=== PATIENT | female | born 1965 | race Caucasian/White ===

== ENCOUNTER → 2016-09-23 | Outpatient (REF) | payer OTHER ==
[2016-09-27 00:06] LABS: Lyme Disease IgG/IgM Antibodie <0.91 ISR (0.00-0.90); Lyme Disease IgM Ab Quantitati <0.80 index (0.00-0.79)
== END ==
LOC: M LAB REF 16:31
PROVIDERS: ATTEND Internal Medicine
DX: M79.1 Myalgia (principal)

== ENCOUNTER → 2017-01-01 | Outpatient (REF) | payer OTHER | LOC: M SMT 16:56 → M SFHCWAGY 16:56 | PROVIDERS: ATTEND Nurse Practitioner Women's Health | DX: Z11.3 Encounter for screening for infections with a predominantly sexual mode of transmission (principal) ==

== ENCOUNTER → 2017-01-08 | Outpatient (CLI) | payer OTHER ==
--- NOTE | 2017-01-08 16:55 | REPMRS ---
Patient History The patient states she had a clinical breast exam in 01/2017. Patient is postmenopausal and had first child at age 29. Family history of breast cancer in sister at age 53. Took hormonal contraceptives for 27 years 6 months. Digital Woman Screen Mammo: January 08, 2017 - Exam #: [id number] Bilateral CC and MLO view(s) were taken. Technologist: Teresa Vera, Technologist Prior study comparison: January 08, 2016, digital woman screen mammo performed at [facility]. December 29, 2014, digital woman screen mammo performed at [facility]. FINDINGS: There are scattered fibroglandular densities. There has been no change in the appearance of the mammogram from the prior studies. There is a mild amount of residual fibroglandular tissue which is fairly symmetric. There is no interval development of dominant mass, architectural distortion, or clustered microcalcification suggestive of malignancy. ASSESSMENT: BI-RADS/ACR category 1 mammogram. Negative. Recommendation Routine screening mammogram in 1 year (for women over age 40). This mammogram was interpreted with the aid of an FDA-approved computer-aided dectection system. Electronically Signed By: Shahzad Becker MD 01/08/17 0838
== END ==
LOC: M WHC 15:26
PROVIDERS: ATTEND Nurse Practitioner Women's Health
DX: Z12.31 Encounter for screening mammogram for malignant neoplasm of breast (principal)

== ENCOUNTER → 2017-01-08 | Outpatient (REF) | payer OTHER | LOC: M SFHCWAGY 15:59 | PROVIDERS: ATTEND Nurse Practitioner Women's Health | DX: Z12.4 Encounter for screening for malignant neoplasm of cervix (principal); Z12.39 Encounter for other screening for malignant neoplasm of breast ==

== ENCOUNTER → 2017-04-28 | Outpatient (REF) | payer OTHER ==
[2017-04-28 18:55] LABS: VITAMIN B12 LEVEL 682 PG/ML (247-911)
[2017-05-01 00:06] LABS: Lyme Disease IgG/IgM Antibodie <0.91 ISR (0.00-0.90); Lyme Disease IgM Ab Quantitati <0.80 index (0.00-0.79)
== END ==
LOC: M LAB REF 14:22
PROVIDERS: ATTEND Nurse Practitioner Adult Health
DX: M79.606 Pain in leg, unspecified (principal)

== ENCOUNTER → 2017-07-01 | Outpatient (REF) | payer OTHER | LOC: M SFHCWAGY 17:12 | PROVIDERS: ATTEND Nurse Practitioner Family | DX: Z11.3 Encounter for screening for infections with a predominantly sexual mode of transmission (principal) ==

== ENCOUNTER → 2017-09-21 | Outpatient (REF) | payer OTHER ==
[2017-09-21 16:38] LABS: MYOGLOBIN 50 NG/ML (13-71)
[2017-09-24 00:06] LABS: Lyme Disease IgG/IgM Antibodie <0.91 ISR (0.00-0.90); Lyme Disease IgM Ab Quantitati <0.80 index (0.00-0.79)
== END ==
LOC: M LAB REF 16:01
DX: M62.81 Muscle weakness (generalized) (principal); M70.61 Trochanteric bursitis, right hip

== ENCOUNTER → 2017-09-30 | Outpatient (CLI) | payer OTHER | LOC: M WUC 15:49 | DX: R05 Cough (principal); R91.8 Other nonspecific abnormal finding of lung field | CPT/HCPCS: 71046 ==

== ENCOUNTER → 2017-10-24 | Outpatient (CLI) | payer OTHER | LOC: M WUC 12:58 | DX: R91.8 Other nonspecific abnormal finding of lung field (principal) ==

== ENCOUNTER → 2018-03-19 | Outpatient (CLI) | payer OTHER | LOC: M WHC 13:45 | DX: Z12.31 Encounter for screening mammogram for malignant neoplasm of breast (principal) | CPT/HCPCS: 77067 ==

== ENCOUNTER → 2018-03-19 | Outpatient (REF) | payer OTHER | LOC: M SFHCWAGY 14:30 | DX: Z12.4 Encounter for screening for malignant neoplasm of cervix (principal) ==

== ENCOUNTER → 2018-06-30 | Outpatient (CLI) | payer OTHER | LOC: M WUC 14:15 | DX: R05 Cough (principal) | CPT/HCPCS: 71046 ==

== ENCOUNTER → 2019-03-21 | Outpatient (REF) | payer OTHER | LOC: M LAB REF 13:24 | PROVIDERS: ATTEND Nurse Practitioner Women's Health | DX: Z12.4 Encounter for screening for malignant neoplasm of cervix (principal) ==

== ENCOUNTER → 2019-03-21 | Outpatient (REF) | payer OTHER | LOC: M SFHCWAGY 09:16 | PROVIDERS: ATTEND Nurse Practitioner Women's Health | DX: Z12.4 Encounter for screening for malignant neoplasm of cervix (principal) ==

== ENCOUNTER → 2019-03-21 | Outpatient (CLI) | payer OTHER ==
--- NOTE | 2019-03-21 10:50 | REP ---
BILATERAL MAMMOGRAM WITH 3D TOMOSYNTHESIS: Family history of breast cancer in sister at age 53. [facility] lifetime risk of breast cancer 19.6%. Comparison 03/19/2018 as well as multiple other prior exams. MLO and CC views of both breasts are performed with 3D tomosynthesis. There is mild to moderate scattered fibroglandular tissue bilaterally. I suspect a 6 mm nodule in the inferolateral right breast posteriorly. No other mass or architectural distortion is seen. No clustered microcalcifications are seen. There are coarse benign type calcifications bilaterally. IMPRESSION: BIRADS 0: BI-RADS/ACR category 0 mammogram, Incomplete: Need additional imaging evaluation and/or prior mammograms for comparison. Suspect 6 mm nodule right breast posterior third inferolaterally. Recommend spot compression views and ultrasound to further evaluate. This mammogram was interpreted with the aid of an FDA-approved computer-aided detection system. The patient states he/she had a clinical breast exam in 03/2019. The patient letter being requested is M0.
== END ==
LOC: M WHC 09:01
PROVIDERS: ATTEND Nurse Practitioner Women's Health
DX: Z12.31 Encounter for screening mammogram for malignant neoplasm of breast (principal); N63.10 Unspecified lump in the right breast, unspecified quadrant

== ENCOUNTER → 2019-03-24 | Outpatient (CLI) | payer OTHER ==
--- NOTE | 2019-03-24 15:06 | REP ---
DIAGNOSTIC MAMMOGRAM RIGHT BREAST WITH RIGHT BREAST ULTRASOUND: Multiple spot compression views and tomosynthesis views of the right breast are performed to evaluate a possible nodule inferolaterally in the right breast, far posteriorly. This was best seen on the right CC view obtained during screening mammography 03/21/2019. The nodular density in the right breast inferolaterally does not persist on the multiple compression and tomographic views. It appears to compress to an unchanged appearance compared to other prior studies. Real-time sonographic evaluation of the right lateral breast performed concentrating inferiorly and posteriorly. There are scattered dilated ducts in the later aspect of the breast including in the retroareolar region. There is a 4 mm cyst at the 9 -o'clock position approximately 6-7 cm from the nipple. No solid nodule is seen. IMPRESSION: BIRADS 2: BI-RADS/ACR category 2 mammogram. Benign Findings. ACR 2. No persistent nodule on multiple spot compression and tomographic images in the lateral inferior right breast posteriorly. By ultrasound, there are scattered dilated ducts in the lateral aspect of the right breast and there is a 4 mm benign cyst at the 9 -o'clock position. No suspicious solid nodule is seen sonographically. Recommend followup mammogram in 1 year. Patient letter being requested M1. Electronically Signed by Shahzad Becker MD 03/27/2019 07:17 P
== END ==
LOC: M RAD 12:08
PROVIDERS: ATTEND Nurse Practitioner Women's Health
DX: N63.10 Unspecified lump in the right breast, unspecified quadrant (principal)

== ENCOUNTER → 2019-06-20 | Outpatient (CLI) | payer OTHER ==
[2019-06-20 16:45] LABS: PERCENT SATURATION 28.9 % (13.2-45.0)
[2019-06-20 16:58] LABS: FOLATE 16.9 NG/ML
--- NOTE | 2019-06-21 05:42 | REP ---
Clinical: Pain and swelling. Technique: Three views of the right sternoclavicular joint. Findings: The right sternoclavicular joint appears intact and normal. There is evidence for old healed mid clavicular shaft fracture. Impression: Normal radiographic appearance to the sternoclavicular joint. Old right clavicle fracture. Electronically Signed by Daniel Hardy MD 06/21/2019 05:33 A
== END ==
LOC: M WUC 15:36
PROVIDERS: ATTEND Internal Medicine
DX: D64.9 Anemia, unspecified (principal); R07.89 Other chest pain

== ENCOUNTER → 2020-01-18 | Outpatient (CLI) | payer OTHER | LOC: M LABSMTC 11:33 | PROVIDERS: ATTEND Family Medicine | DX: Z11.59 Encounter for screening for other viral diseases (principal); Z20.828 Contact with and (suspected) exposure to other viral communicable diseases | CPT/HCPCS: C9803; U0003 ==

== ENCOUNTER → 2020-02-03 | Outpatient (CLI) | payer OTHER ==
--- NOTE | 2020-02-03 12:28 | REP ---
REASON: Cough. History of bronchitis. COMPARISON: 06/30/2018 FINDINGS: The superior mediastinal structures are midline. The cardiac silhouette is unremarkable in size, shape, and position. The diaphragmatic surfaces of the lungs are regular, and the costophrenic angles are clear. The pulmonary francois are clear. The imaged osseous structures are intact. IMPRESSION: There is no acute cardiopulmonary disease. No significant change from the prior exam. Electronically Signed by Kenny Tyson DO 02/03/2020 01:03 P
== END ==
LOC: M WUC 11:07
PROVIDERS: ATTEND Physician Assistant
DX: Z20.828 Contact with and (suspected) exposure to other viral communicable diseases (principal); J20.9 Acute bronchitis, unspecified; R05 Cough
CPT/HCPCS: 71046; U0003

== ENCOUNTER → 2020-03-22 | Outpatient (CLI) | payer OTHER ==
--- NOTE | 2020-03-22 11:11 | REPMRS ---
Patient History The patient states she had a clinical breast exam in March 2020.Family history of breast cancer at age 53 in sister. Took hormonal contraceptives for 27 years 6 months. 3D TOMOSYNTHESIS WAS PERFORMED. The Maryann [facility]ip[facility] lifetime risk for breast cancer is 19.1%. VOLPARA DENSITY B. Digital Woman Screen Mammo: March 22, 2020 - Exam #: [id number] Bilateral CC and MLO view(s) were taken. Technologist: Jeni Fernando, Technologist Prior study comparison: March 24, 2019, right breast digital mammo diagnostic unilateral, performed at [facility]. March 21, 2019, bilateral digital woman screen mammo performed at [facility]. FINDINGS: The breast tissue is heterogeneously dense. This may lower the sensitivity of mammography. There has been no change in the appearance of the mammogram from the prior studies. There is a moderate amount of residual fibroglandular tissue which is fairly symmetric. There is no interval development of dominant mass, areas of architectural distortion, or clustered microcalcification typical of malignancy. Assessment: BI-RADS/ACR category 1 mammogram. Negative Mammogram. Recommendation Routine screening mammogram in 1 year (for women over age 40). This mammogram was interpreted with the aid of an FDA-approved computer-aided dectection system. Electronically Signed By: Shahzad Becker MD 03/22/20 1100
== END ==
LOC: M WHC 09:03
PROVIDERS: ATTEND Nurse Practitioner Women's Health
DX: Z12.31 Encounter for screening mammogram for malignant neoplasm of breast (principal); Z80.3 Family history of malignant neoplasm of breast; Z92.0 Personal history of contraception

== ENCOUNTER → 2020-07-04 | Outpatient (REF) | payer OTHER ==
[2020-07-06 17:15] LABS: ANTINUCLEAR ANTIBODIES DIRECT Negative (Negative); Lyme Disease IgG/IgM Antibodie <0.91 ISR (0.00-0.90); Lyme Disease IgM Ab Quantitati <0.80 index (0.00-0.79)
== END ==
LOC: M LAB REF 17:14
PROVIDERS: ATTEND Internal Medicine
DX: M79.604 Pain in right leg (principal)

== ENCOUNTER → 2020-08-14 | Outpatient (CLI) | payer SELFPAY | LOC: M LABSMTC 10:57 | PROVIDERS: ATTEND Pediatrics | DX: Z11.59 Encounter for screening for other viral diseases (principal) ==

== ENCOUNTER → 2020-09-11 | Outpatient (CLI) | payer OTHER ==
--- NOTE | 2020-09-11 16:41 | REP ---
INDICATION: BRONCHITIS. COMPARISON: Comparison chest x-ray February 03, 2020. TECHNIQUE: Two views.. FINDINGS: The lungs are well inflated and free of infiltrate. The pleural angles are sharp. The heart size is normal. Pulmonary vasculature is not increased. No significant bony abnormality is seen. There is a gentle S-shaped thoracic scoliotic curve unchanged. IMPRESSION: No active disease.. <Electronically signed by Sam Francis > 09/11/20 [id number]
== END ==
LOC: M WUC 16:16
PROVIDERS: ATTEND Physician Assistant
DX: J20.9 Acute bronchitis, unspecified (principal)

== ENCOUNTER → 2020-09-15 | Outpatient (CLI) | payer SELFPAY | LOC: M LABSMTC 09:14 | PROVIDERS: ATTEND Pediatrics | DX: Z20.822 Contact with and (suspected) exposure to COVID-19 (principal) ==

== ENCOUNTER → 2020-10-22 | Outpatient (REF) | payer OTHER ==
[2020-10-22 17:50] LABS: COMPLEMENT C3 102 MG/DL (90-180); COMPLEMENT C4 16 MG/DL (10-40); CPK CREATINE PHOSPHOKINASE 78 U/L (26-192); IRON (FE) 99 UG/DL (50-170); MAGNESIUM LEVEL 2.1 MG/DL (1.8-2.4); PHOSPHORUS LEVEL 4.3 MG/DL (2.5-4.9); TOTAL PROTEIN 7.2 GM/DL (6.4-8.2)
[2020-10-22 17:52] LABS: BASO % 0.7 % (0.0-1.0); HEMATOCRIT 38.8 % (36.0-47.0); HEMOGLOBIN 12.5 g/dl (12.0-15.5); LYMPH % 35.6 % (24.0-44.0); MEAN CORPUSCULAR HEMOGLOBIN 29.6 pg (27.0-33.0); MEAN CORPUSCULAR HGB CONC 32.2 g/dl (32.0-36.5); MEAN CORPUSCULAR VOLUME 91.9 fl (80.0-96.0); MONO # 0.4 10^3/uL (0.0-0.8); MONO % 7.7 % (0.0-8.0); NEUTROPHILS # 3.1 10^3/uL (1.5-8.5); NEUTROPHILS % 55.8 % (36.0-66.0); PLATELET COUNT, AUTOMATED 289 10^3/uL (150-450); RED BLOOD COUNT 4.22 10^6/uL (4.00-5.40); WHITE BLOOD COUNT 5.6 10^3/uL (4.0-10.0)
[2020-10-22 17:58] LABS: TOTAL 25(OH) VITAMIN D 27.9 NG/ML (30.0-100.0); VITAMIN B12 LEVEL 909 PG/ML (247-911)
[2020-10-23 12:52] LABS: ALBUMIN % 61.1 % (55.8-66.1); ALPHA-1-GLOBULIN % 3.8 % (2.9-4.9); ALPHA-2-GLOBULINS % 7.9 % (7.1-11.8)
[2020-10-23 12:53] LABS: ALPHA-1-GLOBULINS 0.27 GM/DL (0.17-0.41); ALPHA-2-GLOBULINS 0.57 GM/DL (0.42-0.99); BETA-1-GLOBULINS % 5.5 % (4.7-7.2); BETA-2-GLOBULINS 0.33 GM/DL (0.19-0.55); BETA-2-GLOBULINS % 4.6 % (3.2-6.5); GAMMA GLOBULIN % 17.1 % (11.1-18.8); GAMMA GLOBULINS 1.23 GM/DL (0.65-1.58)
== END ==
LOC: M SFHCRHEU 10:17
PROVIDERS: ATTEND Internal Medicine
DX: M79.10 Myalgia, unspecified site (principal); D72.819 Decreased white blood cell count, unspecified; H04.129 Dry eye syndrome of unspecified lacrimal gland

== ENCOUNTER → 2020-12-10 | Outpatient (CLI) | payer OTHER ==
--- NOTE | 2020-12-11 15:22 | SLEEPHOME ---
DATE: 12/10/2020 ORDERED BY: Dr. Velia Murry [facility] Diagnostic home sleep testing was performed due to concern for the obstructive sleep apnea syndrome in this patient with a history of fatigue. For testing, a nocturnal T3 respiratory monitoring device was used. Continuous record was made of pulse, oxygen saturation, air flow, chest and abdominal strain, and body position. There was 11 hours and 59 minutes of data reviewed. There was 7 hours and 14 hours marked as time in bed. During the interval marked time in bed there were 58 respiratory events identified of 10 seconds in duration or greater for a respiratory event index of 8. The events were primarily obstructive. Ten mixed and central apneas were noted. Baseline pulse rate 55. Pulse rate ranged between 36-108. Baseline saturation was 95%. Saturations fell to 79%, and testing was performed in both the supine and nonsupine positions. IMPRESSION: Abnormal home sleep testing with repetitive respiratory events and oxygen desaturations to 79% with a respiratory event index of 8 is consistent with the obstructive sleep apnea syndrome. RECOMMENDATION: The patient should be encouraged to undergo formal sleep evaluation.
== END ==
LOC: M SLEEP HO 09:03
PROVIDERS: ATTEND Internal Medicine
DX: R53.83 Other fatigue (principal)

== ENCOUNTER → 2020-12-14 | Outpatient (CLI) | payer OTHER ==
--- NOTE | 2020-12-14 13:23 | DEXAMM ---
INDICATION: Z78.0 ASYMPTOMATIC MENOPAUSAL STATE. COMPARISON: None. TECHNIQUE: Bone density was measured using dual-energy x-ray absorptiometry (DEXA). FINDINGS: AP SPINE L1-L4 BMD 1.097 g/cm2 Young Adult T-Score -0.8 Age Matched Z-Score 0.2. LT FEMUR, TOTAL BMD 0.952 g/cm2 Young Adult T-Score -0.4 Age Matched Z-Score 0.3. LT NECK BMD 0.868 g/cm2 Young Adult T-Score -1.2 Age Matched Z-Score -0.1. RT FEMUR, TOTAL BMD 0.895 g/cm2 Young Adult T-Score -0.9 Age Matched Z-Score -0.1. RT NECK BMD 0.836 g/cm2 Young Adult T-Score -1.5 Age Matched Z-Score -0.4. IMPRESSION: There is normal bone density of the spine. There is low bone density of the left hip. There is low bone density of the right hip. FOLLOW-UP: Recommendation for the next bone density exam: 2 years. <Electronically signed by Shahzad Becker > 12/14/20 0316
== END ==
LOC: M WHC 09:34
PROVIDERS: ATTEND Internal Medicine
DX: Z78.0 Asymptomatic menopausal state (principal); M85.89 Other specified disorders of bone density and structure, multiple sites

== ENCOUNTER → 2021-03-26 | Outpatient (REF) | payer OTHER | LOC: M SFHCWAGY 13:12 | PROVIDERS: ATTEND Nurse Practitioner Women's Health | DX: Z12.4 Encounter for screening for malignant neoplasm of cervix (principal) ==

== ENCOUNTER → 2021-03-26 | Outpatient (CLI) | payer OTHER ==
--- NOTE | 2021-03-26 10:22 | REPMRS ---
Patient History The patient states she had a clinical breast exam in March 2021. Family history of breast cancer at age 53 in sister. Took hormonal contraceptives for 27 years 6 months. Patient states no breast complaints today. Patient has signed MRS History Sheet. Digital Woman Screen Mammo: March 26, 2021 - Exam #: [id number] Bilateral CC and MLO view(s) were taken. Technologist: Yamilet Iglesias, Technologist Prior study comparison: March 22, 2020, bilateral digital woman screen mammo performed at [facility]. March 24, 2019, right breast digital mammo diagnostic unilateral, performed at [facility]. March 21, 2019, bilateral digital woman screen mammo performed at [facility]. FINDINGS: There are scattered fibroglandular densities. The Volpara volumetric breast density category is:B. There has been no change in the appearance of the mammogram from the prior studies. There is a mild amount of scattered fibroglandular density which is fairly symmetric. There is no interval development of dominant mass, architectural distortion, or grouped microcalcification suggestive of malignancy. 3-D tomosynthesis shows no additional findings. Assessment: BI-RADS/ACR category 1 mammogram. Negative Mammogram. Recommendation Routine screening mammogram of both breasts in 1 year (for women over age 40). This patient's [facility] Lifetime Breast Cancer Risk is estimated at 18.6 %. This mammogram was interpreted with the aid of an FDA-approved computer-aided dectection system. Electronically Signed By: Sam Francis MD 03/26/21 1758
== END ==
LOC: M WHC 09:20
PROVIDERS: ATTEND Nurse Practitioner Women's Health
DX: Z12.31 Encounter for screening mammogram for malignant neoplasm of breast (principal); Z80.3 Family history of malignant neoplasm of breast

== ENCOUNTER → 2021-06-20 | Outpatient (REF) | payer OTHER | LOC: M SFHCWAGY 16:49 | PROVIDERS: ATTEND Nurse Practitioner Women's Health | DX: R30.0 Dysuria (principal) ==

== ENCOUNTER → 2021-07-19 | Outpatient (REF) | payer OTHER ==
[2021-07-19 21:02] LABS: APPEARANCE, URINE HAZY (CLEAR); BACTERIA, URINE AUTO 1+ (NEGATIVE); BILIRUBIN, URINE AUTO NEGATIVE (NEGATIVE); BLOOD, URINE BLOOD NEGATIVE (NEGATIVE); COLOR, URINE YELLOW (YELLOW); GLUCOSE, URINE (UA) AUTO NEGATIVE (NEGATIVE); KETONE, URINE AUTO NEGATIVE (NEGATIVE); LEUKOCYTE ESTERASE, URINE AUTO 2+ (NEGATIVE); MUCUS, URINE SMALL (NEGATIVE); NITRITE, URINE AUTO POSITIVE (NEGATIVE); PROTEIN, URINE AUTO NEGATIVE (NEGATIVE); RBC, URINE AUTO 1 /HPF (0-3); SPECIFIC GRAVITY URINE AUTO 1.012 (1.002-1.035); SQUAMOUS EPITHELIAL CELL UR AU 4 /HPF (0-6); UROBILINOGEN, URINE AUTO 0.2 mg/dL (0.0-2.0); WBC, URINE AUTO 23 /HPF (0-3)
== END ==
LOC: M LAB REF 20:47
PROVIDERS: ATTEND Physician Assistant
DX: R30.0 Dysuria (principal)

== ENCOUNTER → 2021-08-26 | Outpatient (CLI) | payer OTHER ==
[~2021-08-26] MED LIST: METHACHOLINE KIT (J7674) INH ONE
--- NOTE | 2021-08-26 16:08 | PFTRPT ---
Height: 67.00 Inches Weight: 138.00 Lbs BSA: 1.73 Diagnosis: R05.9 DATE: 08/26/2021 ORDERED BY: MIKA HAILE M.D. QUALITY: Study of excellent technical quality. PROCEDURE: Under protocol, methacholine was administered. At a dose of 10 mg or 63.875 CDUs, a 20% decline in the FEV1 was noted. PC of 8.03 is on the borderline of positive but flow rates did return to baseline post bronchodilator administration. IMPRESSION: Probably positive methacholine challenge. Please correlate clinically. MTDD
== END ==
LOC: M CARPUL 07-08 15:11
PROVIDERS: ATTEND Internal Medicine
DX: R05.9 Cough, unspecified (principal)
CPT/HCPCS: 94070; J7674

== ENCOUNTER → 2021-11-21 | Outpatient (REF) | payer OTHER ==
[2021-11-22 15:13] LABS: APPEARANCE, URINE HAZY (CLEAR); BACTERIA, URINE AUTO NEGATIVE (NEGATIVE); BILIRUBIN, URINE AUTO NEGATIVE (NEGATIVE); BLOOD, URINE BLOOD NEGATIVE (NEGATIVE); CALCIUM OXALATE CRYSTALS SMALL; COLOR, URINE YELLOW (YELLOW); GLUCOSE, URINE (UA) AUTO NEGATIVE (NEGATIVE); KETONE, URINE AUTO NEGATIVE (NEGATIVE); LEUKOCYTE ESTERASE, URINE AUTO NEGATIVE (NEGATIVE); NITRITE, URINE AUTO NEGATIVE (NEGATIVE); PROTEIN, URINE AUTO NEGATIVE (NEGATIVE); RBC, URINE AUTO 0 /HPF (0-3); SPECIFIC GRAVITY URINE AUTO 1.015 (1.002-1.035); SQUAMOUS EPITHELIAL CELL UR AU 1 /HPF (0-6); UROBILINOGEN, URINE AUTO 0.2 mg/dL (0.0-2.0); WBC, URINE AUTO 0 /HPF (0-3)
== END ==
LOC: M LAB REF 14:45
PROVIDERS: ATTEND Physician Assistant
DX: N39.0 Urinary tract infection, site not specified (principal)

== ENCOUNTER → 2022-02-25 | Outpatient (REF) | payer OTHER | LOC: M LAB REF 16:38 | PROVIDERS: ATTEND Internal Medicine | DX: M54.50 Low back pain, unspecified (principal) ==

== ENCOUNTER → 2022-03-26 | Outpatient (REF) | payer OTHER | LOC: M PLALAB 16:10 | PROVIDERS: ATTEND Advanced Practice Midwife | DX: Z53.9 Procedure and treatment not carried out, unspecified reason (principal) ==

== ENCOUNTER → 2022-04-01 | Outpatient (REF) | payer OTHER | LOC: M SFHCWAGY 13:04 | PROVIDERS: ATTEND Advanced Practice Midwife | DX: Z12.4 Encounter for screening for malignant neoplasm of cervix (principal) | CPT/HCPCS: 87624; G0123 ==

== ENCOUNTER → 2022-04-01 | Outpatient (CLI) | payer OTHER | LOC: M WHC 09:19 | PROVIDERS: ATTEND Advanced Practice Midwife | DX: Z53.9 Procedure and treatment not carried out, unspecified reason (principal) ==

== ENCOUNTER → 2022-05-29 | Outpatient (CLI) | payer OTHER | LOC: M WHC 12:45 | PROVIDERS: ATTEND Advanced Practice Midwife | DX: Z12.31 Encounter for screening mammogram for malignant neoplasm of breast (principal) ==

== ENCOUNTER → 2022-10-31 | Outpatient (CLI) | payer OTHER ==
[2022-10-31 17:15] LABS: BASO % 0.6 % (0.0-1.0); HEMATOCRIT 39.5 % (36.0-47.0); HEMOGLOBIN 12.7 g/dl (12.0-15.5); LYMPH # 2.1 10^3/uL (1.5-5.0); LYMPH % 41.5 % (24.0-44.0); MEAN CORPUSCULAR HEMOGLOBIN 30.5 pg (27.0-33.0); MEAN CORPUSCULAR HGB CONC 32.2 g/dl (32.0-36.5); MEAN CORPUSCULAR VOLUME 94.7 fl (80.0-96.0); MONO # 0.4 10^3/uL (0.0-0.8); MONO % 8.3 % (2.0-8.0); NEUTROPHILS # 2.5 10^3/uL (1.5-8.5); PLATELET COUNT, AUTOMATED 248 10^3/uL (150-450); RED BLOOD COUNT 4.17 10^6/uL (4.00-5.40); WHITE BLOOD COUNT 5.1 10^3/uL (4.0-10.0)
[2022-10-31 17:24] LABS: ERYTHROCYTE SEDIMENTATION RATE 7 mm/hr (0-30)
[2022-10-31 17:31] LABS: C REACTIVE PROTEIN QUANTITATIV < 0.40 MG/DL (<1.0)
[2022-10-31 17:32] LABS: RHEUMATOID FACTOR QUANT < 3.5 IU/ML (<14)
[2022-11-03 14:08] LABS: ANTINUCLEAR ANTIBODIES DIRECT Negative (Negative)
== END ==
LOC: M PLALAB 14:00
PROVIDERS: ATTEND Orthopaedic Surgery
DX: M70.61 Trochanteric bursitis, right hip (principal); M48.061 Spinal stenosis, lumbar region without neurogenic claudication; M54.50 Low back pain, unspecified

== ENCOUNTER → 2022-11-19 | Outpatient (REF) | payer OTHER ==
[2022-11-19 17:23] LABS: APPEARANCE, URINE CLOUDY (CLEAR); BACTERIA, URINE AUTO 2+ (NEGATIVE); BILIRUBIN, URINE AUTO NEGATIVE (NEGATIVE); BLOOD, URINE BLOOD NEGATIVE (NEGATIVE); COLOR, URINE YELLOW (YELLOW); GLUCOSE, URINE (UA) AUTO NEGATIVE (NEGATIVE); KETONE, URINE AUTO NEGATIVE (NEGATIVE); LEUKOCYTE ESTERASE, URINE AUTO 3+ (NEGATIVE); NITRITE, URINE AUTO POSITIVE (NEGATIVE); PROTEIN, URINE AUTO NEGATIVE (NEGATIVE); RBC, URINE AUTO 5 /HPF (0-3); SPECIFIC GRAVITY URINE AUTO 1.016 (1.002-1.035); SQUAMOUS EPITHELIAL CELL UR AU 4 /HPF (0-6); UROBILINOGEN, URINE AUTO 0.2 mg/dL (0.0-2.0); WBC, URINE AUTO 45 /HPF (0-3)
== END ==
LOC: M LAB REF 16:57
PROVIDERS: ATTEND Physician Assistant
DX: N39.0 Urinary tract infection, site not specified (principal)

== ENCOUNTER → 2022-12-08 | Outpatient (REF) | payer OTHER | LOC: M LAB REF 18:14 | PROVIDERS: ATTEND Nurse Practitioner Family | DX: R39.15 Urgency of urination (principal) ==

== ENCOUNTER 2022-12-25 11:35 | Day surgery (SDC) | payer OTHER ==
[~2022-12-25] VITALS: Ht 170.2 cm; Wt 62.8 kg
[~2022-12-25 11:35] MED LIST changes: -METHACHOLINE KIT (J7674) INH ONE; +NS 1,000 ML IV ONE
[2022-12-25] MEDS ORDERED: LIDOCAINE 2% 100MG/5ML SDV (FOR ANES.) As Ordered ONE ×2 (13:27→13:33)
[2022-12-25] MEDS ORDERED: propofoL 200 MG/20 ML VIAL As Ordered ONE ×2 (13:27→13:33)
[2022-12-25 14:04] VITALS: BP 108/59
== END 2022-12-25 14:06 | disposition home or self-care (01) ==
LOC: M OPP 11:35
PROVIDERS: ATTEND Surgery
DX: Z12.11 Encounter for screening for malignant neoplasm of colon (principal); K57.30 Diverticulosis of large intestine without perforation or abscess without bleeding; Z88.2 Allergy status to sulfonamides; Z91.013 Allergy to seafood; Z91.018 Allergy to other foods

== ENCOUNTER → 2023-01-02 | Outpatient (CLI) | payer OTHER ==
[2023-01-02 17:22] LABS: BASO % 0.8 % (0.0-1.0); EOS # 0.1 10^3/uL (0.0-0.5); HEMATOCRIT 37.3 % (36.0-47.0); HEMOGLOBIN 12.3 g/dl (12.0-15.5); LYMPH # 2.3 10^3/uL (1.5-5.0); LYMPH % 47.5 % (24.0-44.0); MEAN CORPUSCULAR HEMOGLOBIN 30.5 pg (27.0-33.0); MEAN CORPUSCULAR VOLUME 92.6 fl (80.0-96.0); MONO # 0.4 10^3/uL (0.0-0.8); MONO % 7.5 % (2.0-8.0); NEUTROPHILS # 2.1 10^3/uL (1.5-8.5); PLATELET COUNT, AUTOMATED 253 10^3/uL (150-450); RED BLOOD COUNT 4.03 10^6/uL (4.00-5.40); WHITE BLOOD COUNT 4.9 10^3/uL (4.0-10.0)
[2023-01-02 17:42] LABS: ERYTHROCYTE SEDIMENTATION RATE 5 mm/hr (0-30)
[2023-01-02 17:50] LABS: C REACTIVE PROTEIN QUANTITATIV < 0.40 MG/DL (<1.0)
[2023-01-02 17:51] LABS: RHEUMATOID FACTOR QUANT 3.5 IU/ML (<14)
[2023-01-05 14:08] LABS: ANTINUCLEAR ANTIBODIES DIRECT Negative (Negative)
== END ==
LOC: M PLALAB 15:09
PROVIDERS: ATTEND Orthopaedic Surgery
DX: M54.50 Low back pain, unspecified (principal)

== ENCOUNTER → 2023-02-17 | Outpatient (REF) | payer OTHER ==
[2023-02-17 13:09] LABS: CK-MB VALUE MASS 1.9 NG/ML (<3.6)
[2023-02-17 13:14] LABS: CPK CREATINE PHOSPHOKINASE 87 U/L (34-145); MB/CK RELATIVE INDEX 2.18 (< OR =4)
== END ==
LOC: M LAB REF 12:37
PROVIDERS: ATTEND Nurse Practitioner Family
DX: R07.9 Chest pain, unspecified (principal)

== ENCOUNTER → 2023-04-28 | Outpatient (CLI) | payer OTHER | LOC: M WHC 08:54 | PROVIDERS: ATTEND Nurse Practitioner Family | DX: Z12.31 Encounter for screening mammogram for malignant neoplasm of breast (principal) ==

== ENCOUNTER → 2023-04-28 | Outpatient (REF) | payer OTHER ==
[2023-04-28 16:17] LABS: GC DNA AMPLIFICATION NEGATIVE (NEGATIVE)
== END ==
LOC: M SFHCWAGY 13:42
PROVIDERS: ATTEND Nurse Practitioner Family
DX: Z12.4 Encounter for screening for malignant neoplasm of cervix (principal); Z11.3 Encounter for screening for infections with a predominantly sexual mode of transmission
CPT/HCPCS: 87624; 87661; 87810; 87850; G0123

== ENCOUNTER → 2023-05-18 | Outpatient (CLI) | payer OTHER | LOC: M WUC 15:36 | PROVIDERS: ATTEND Nurse Practitioner Family | DX: R06.00 Dyspnea, unspecified (principal) ==

== ENCOUNTER → 2023-07-02 | Outpatient (CLI) | payer OTHER | LOC: M RAD 14:34 | PROVIDERS: ATTEND Internal Medicine | DX: R10.9 Unspecified abdominal pain (principal) ==

== ENCOUNTER 2023-10-20 16:01 | Emergency (ER) | payer OTHER, SELFPAY ==
[~2023-10-20] VITALS: Ht 170.2 cm; Wt 62.7 kg
[2023-10-20] MEDS ORDERED: FLUO20CA22 (16:08)
[2023-10-20 16:41] LABS: BASO % 0.8 % (0.0-1.0); EOS % 0.4 % (0.0-3.0); HEMATOCRIT 37.5 % (36.0-47.0); HEMOGLOBIN 12.6 g/dl (12.0-15.5); LYMPH % 40.5 % (24.0-44.0); MEAN CORPUSCULAR HEMOGLOBIN 31.5 pg (27.0-33.0); MEAN CORPUSCULAR HGB CONC 33.6 g/dl (32.0-36.5); MEAN CORPUSCULAR VOLUME 93.8 fl (80.0-96.0); MONO # 0.5 10^3/uL (0.0-0.8); MONO % 9.3 % (2.0-8.0); NEUTROPHILS # 2.5 10^3/uL (1.5-8.5); PLATELET COUNT, AUTOMATED 253 10^3/uL (150-450)
[2023-10-20 17:15] LABS: CK-MB VALUE MASS < 1.0 NG/ML (<3.6); LIPASE 68 U/L (12-53)
[2023-10-20 17:17] LABS: ALBUMIN 3.9 G/DL (3.2-5.2); ALKALINE PHOSPHATASE 72 U/L (46-116); ALT/SGPT 47 U/L (7.0-40); AST/SGOT 27 U/L (<34); BILIRUBIN,DIRECT < 0.1 MG/DL (<0.4); BILIRUBIN,TOTAL 0.2 MG/DL (0.3-1.2); BLOOD UREA NITROGEN 20 MG/DL (9-23); CALCIUM LEVEL 9.4 MG/DL (8.5-10.1); CARBON DIOXIDE LEVEL 29 MMOL/L (20-31); CHLORIDE LEVEL 103 MMOL/L (98-107); CREATININE FOR GFR 0.69 MG/DL (0.55-1.30); GLOMERULAR FILTRATION RATE > 60.0 (>51); GLUCOSE, FASTING 98 MG/DL (60-100); POTASSIUM SERUM 4.3 MMOL/L (3.5-5.1); SODIUM LEVEL 136 MMOL/L (136-145); TOTAL PROTEIN 6.7 G/DL (5.7-8.2)
[2023-10-20 17:19] LABS: CPK CREATINE PHOSPHOKINASE 85 U/L (34-145); MB/CK RELATIVE INDEX 1.17 (< OR =4)
[2023-10-20 18:23] VITALS: BP 169/84
[2023-10-20 19:20] LABS: INR 0.92; PROTHROMBIN TIME 12.1 SECONDS (12.5-14.5)
[2023-10-20 20:16] LABS: CK-MB VALUE MASS < 1.0 NG/ML (<3.6)
[2023-10-20 20:22] LABS: CPK CREATINE PHOSPHOKINASE 97 U/L (34-145); MB/CK RELATIVE INDEX 1.03 (< OR =4)
[2023-10-20] MEDS ORDERED: LISI10TA22 PO (20:37)
[2023-10-20] MEDS ORDERED: ASPI81TA26 PO (20:37)
[2023-10-20 20:52] VITALS: TEMP 97.5; O2SAT 99
[2023-10-20 21:00] VITALS: BP 146/83
[2023-10-21] MEDS ORDERED: ASPIRIN 81MG ENTERIC TABLET PO SCH (09:00)
== END 2023-10-20 21:14 | disposition home or self-care (01) ==
LOC: M ED 16:01
DX: R07.9 Chest pain, unspecified (principal); F10.10 Alcohol abuse, uncomplicated; R00.1 Bradycardia, unspecified; I45.10 Unspecified right bundle-branch block; Z88.2 Allergy status to sulfonamides; Z91.018 Allergy to other foods; Z91.013 Allergy to seafood; Z79.899 Other long term (current) drug therapy; Z79.1 Long term (current) use of non-steroidal anti-inflammatories (NSAID)

== ENCOUNTER → 2023-12-22 | Outpatient (CLI) | payer OTHER ==
[~2023-12-22] MED LIST changes: +ASPI81TA26 PO; +FLUO20CA22; +LISI10TA22 PO; -NS 1,000 ML IV ONE
== END ==
LOC: M SLEEP HO 11:47
PROVIDERS: ATTEND Nurse Practitioner Family
DX: R06.83 Snoring (principal)

== ENCOUNTER → 2024-01-05 | Outpatient (REF) | payer OTHER ==
[2024-01-05 21:54] LABS: APPEARANCE, URINE HAZY (CLEAR); BACTERIA, URINE AUTO NEGATIVE (NEGATIVE); BILIRUBIN, URINE AUTO NEGATIVE (NEGATIVE); BLOOD, URINE BLOOD NEGATIVE (NEGATIVE); CALCIUM OXALATE CRYSTALS SMALL; COLOR, URINE YELLOW (YELLOW); GLUCOSE, URINE (UA) AUTO NEGATIVE (NEGATIVE); KETONE, URINE AUTO TRACE mg/dL (NEGATIVE); LEUKOCYTE ESTERASE, URINE AUTO NEGATIVE (NEGATIVE); MUCUS, URINE SMALL (NEGATIVE); NITRITE, URINE AUTO NEGATIVE (NEGATIVE); PROTEIN, URINE AUTO NEGATIVE (NEGATIVE); RBC, URINE AUTO 2 /HPF (0-3); SPECIFIC GRAVITY URINE AUTO 1.026 (1.002-1.035); SQUAMOUS EPITHELIAL CELL UR AU 3 /HPF (0-6); UROBILINOGEN, URINE AUTO 0.2 mg/dL (0.0-2.0); WBC, URINE AUTO 1 /HPF (0-3)
== END ==
LOC: M LAB REF 21:21
PROVIDERS: ATTEND Physician Assistant Medical
DX: N39.0 Urinary tract infection, site not specified (principal)

== ENCOUNTER → 2024-01-19 | Outpatient (REF) | payer OTHER | LOC: M SFHCWAGY 17:12 | PROVIDERS: ATTEND Nurse Practitioner Family | DX: R30.0 Dysuria (principal); Z11.3 Encounter for screening for infections with a predominantly sexual mode of transmission ==

== ENCOUNTER → 2024-01-29 | Outpatient (REF) | payer OTHER ==
[2024-01-29 21:34] LABS: APPEARANCE, URINE HAZY (CLEAR); BACTERIA, URINE AUTO NEGATIVE (NEGATIVE); BILIRUBIN, URINE AUTO NEGATIVE (NEGATIVE); BLOOD, URINE BLOOD 1+ (NEGATIVE); COLOR, URINE YELLOW (YELLOW); GLUCOSE, URINE (UA) AUTO NEGATIVE (NEGATIVE); KETONE, URINE AUTO NEGATIVE (NEGATIVE); LEUKOCYTE ESTERASE, URINE AUTO 2+ (NEGATIVE); MUCUS, URINE SMALL (NEGATIVE); NITRITE, URINE AUTO NEGATIVE (NEGATIVE); PROTEIN, URINE AUTO NEGATIVE (NEGATIVE); RBC, URINE AUTO 11 /HPF (0-3); SPECIFIC GRAVITY URINE AUTO 1.011 (1.002-1.035); SQUAMOUS EPITHELIAL CELL UR AU 3 /HPF (0-6); UROBILINOGEN, URINE AUTO 0.2 mg/dL (0.0-2.0); WBC, URINE AUTO 68 /HPF (0-3)
== END ==
LOC: M LAB REF 20:51
PROVIDERS: ATTEND Physician Assistant
DX: N39.0 Urinary tract infection, site not specified (principal)

== ENCOUNTER → 2024-02-25 | Outpatient (REF) | payer OTHER ==
[~2024-02-25] MED LIST changes: +FLUO-365; -FLUO20CA22
== END ==
LOC: M LAB REF 16:08
PROVIDERS: ATTEND Physician Assistant
DX: B34.9 Viral infection, unspecified (principal)

== ENCOUNTER → 2024-03-23 | Outpatient (CLI) | payer OTHER | LOC: M WHC 10:41 | PROVIDERS: ATTEND Internal Medicine | DX: M85.89 Other specified disorders of bone density and structure, multiple sites (principal) ==

== ENCOUNTER → 2024-04-19 | Outpatient (REF) | payer OTHER ==
[2024-04-19 14:49] LABS: IRON (FE) 99 UG/DL (50-170); PERCENT SATURATION 30.8 % (13.2-45.0); TOTAL IRON BINDING CAPACITY 321 UG/DL (250-425)
[2024-04-19 14:54] LABS: FOLATE > 24.0 NG/ML (>5.4); VITAMIN B12 LEVEL 1035 PG/ML (211-911)
== END ==
LOC: M LAB REF 13:32
PROVIDERS: ATTEND Internal Medicine
DX: D72.819 Decreased white blood cell count, unspecified (principal)

== ENCOUNTER → 2024-05-02 | Outpatient (REF) | payer OTHER ==
[2024-05-02 14:01] LABS: Trichomonas vaginalis (AMP) NOT DETECTED (NEGATIVE)
[2024-05-02 14:25] LABS: GC DNA AMPLIFICATION NEGATIVE (NEGATIVE)
== END ==
LOC: M SFHCWAGY 12:11
PROVIDERS: ATTEND Nurse Practitioner Family
DX: Z11.3 Encounter for screening for infections with a predominantly sexual mode of transmission (principal); N73.9 Female pelvic inflammatory disease, unspecified; R30.0 Dysuria

== ENCOUNTER → 2024-05-02 | Outpatient (CLI) | payer OTHER | LOC: M WHC 08:15 | PROVIDERS: ATTEND Nurse Practitioner Family | DX: Z12.31 Encounter for screening mammogram for malignant neoplasm of breast (principal) ==

== ENCOUNTER → 2024-06-01 | Outpatient (REF) | payer OTHER | LOC: M LAB REF 16:15 | PROVIDERS: ATTEND Internal Medicine | DX: M25.50 Pain in unspecified joint (principal); R53.83 Other fatigue ==

== ENCOUNTER → 2025-05-16 | Outpatient (CLI) | payer OTHER | LOC: M WHC 15:25 | PROVIDERS: ATTEND Nurse Practitioner Family | DX: Z12.31 Encounter for screening mammogram for malignant neoplasm of breast (principal); R92.313 Mammographic fatty tissue density, bilateral breasts ==

== ENCOUNTER → 2025-07-12 | Outpatient (REF) | payer OTHER ==
[2025-07-12 18:00] LABS: CK-MB VALUE MASS 2.3 NG/ML (<3.6)
[2025-07-12 18:01] LABS: CPK CREATINE PHOSPHOKINASE 99 U/L (34-145); IRON (FE) 60 UG/DL (50-170); MB/CK RELATIVE INDEX 2.32 (< OR =4); PERCENT SATURATION 18.9 % (13.2-45.0)
== END ==
LOC: M LAB REF 17:17
PROVIDERS: ATTEND Internal Medicine
DX: R53.83 Other fatigue (principal); R07.89 Other chest pain